=== PATIENT | male | born 1965 | race Caucasian/White ===

== ENCOUNTER 2022-12-05 09:11 | Day surgery (SDC) | payer OTHER ==
--- NOTE | 2022-11-30 12:00 | RAD REPORT ---
EXAM DESCRIPTION: RAD - Chest Pa And Lat (2 Views) - 11/30/2022 11:39 am CLINICAL HISTORY: preop for surgery, hypertension COMPARISON: Chest Pa And Lat (2 Views) dated 06/29/2019; Chest Pa And Lat (2 Views) dated 09/17/2017 FINDINGS: Lines: None. Lungs: No evidence of edema or pneumonia. Pleural: No significant pleural effusions or pneumothorax. Cardiac: The heart size is within normal limits. Mediastinum: Within normal limits. Bones: No acute fractures. Other: None IMPRESSION: No acute cardiopulmonary disease.
[2022-11-30 12:19] LABS: Absolute Lymphocytes (CBC) 1.7 K/uL (0.7-4.9); Hematocrit 46.1 % (39.6-49.0); Lymphocytes % 23.8 % (15.3-44.8); MCV 94.7 fL (80-100); MPV 7.2 fL (7.6-11.3); RBC Red Blood Cell Count 4.87 M/uL (4.33-5.43)
[2022-11-30 12:33] LABS: Potassium 4.1 mEq/L (3.5-5.1)
[2022-11-30 12:53] LABS: Protime INR 0.98
--- NOTE | 2022-12-02 14:47 | EKG ---
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
[2022-12-05] MEDS ORDERED: Ringers Lactate 1,000 ML IV ONE (09:35)
[2022-12-05] MEDS ORDERED: MIDAZOLAM HCL 2 MG/2 ML INJ ONE (10:31)
[2022-12-05] MEDS ORDERED: KETOROLAC 30 MG/ML INJ ONE (10:31)
[2022-12-05] MEDS ORDERED: propofoL 200 MG/20 ML VIAL IV ONE ×2 (10:31→11:44)
[2022-12-05] MEDS ORDERED: dexAMETHasone 10 MG/ML VIAL ONE (10:32)
[2022-12-05] MEDS ORDERED: LIDOCAINE 2% MPF 5 ML VIAL ONE (10:33)
[2022-12-05] MEDS: CEFAZOLIN SODIUM 1 GM/VIAL ONE ×2 (10:36→11:12)
[2022-12-05] MEDS ORDERED: HYDROMORPHONE HCL 1 MG/ML INJ ONE (10:36)
[2022-12-05] MEDS: BUPIVACAINE 0.25% PF 30 ML VIAL ONE ×2 (10:37→11:46)
[2022-12-05] MEDS ORDERED: ONDANSETRON 4 MG/2 ML VIAL ONE (11:28)
[2022-12-05] MEDS ORDERED: CEFAZOLIN SODIUM 1 GM/VIAL ONE (11:38)
--- NOTE | 2022-12-05 12:30 | P.BOP ---
Preoperative diagnosis: left knee medial meniscus tear, left knee osteoarthritis Postoperative diagnosis: same, left knee medial plica Primary procedure: left knee arthroscopic partial medial meniscectomy Secondary procedure: left knee arthroscopic medial femoral condyle chondroplasty Other procedure(s): left knee arthroscopic medial plica excision Chain Sales Representative: NONE,NONE Estimated blood loss: 5 cc Specimen: none Findings: see dictation Anesthesia: General Complications: None Implants: none Fluids & blood products: per anesthesia record; TT: 34 mins @ 300 mmHg Transferred to: Recovery Room Condition: Good
[2022-12-05] MEDS: HYDROMORPHONE HCL 1 MG/ML INJ ONE ×4 (12:32→12:50)
[2022-12-05] MEDS ORDERED: HYDROCODONE/APAP 7.5/325 MG TAB ONE (13:19)
[2022-12-05 13:42] VITALS: BP 136/75; TEMP 97.5; O2SAT 96
--- NOTE | 2022-12-06 05:49 | OP ---
Date of Procedure: 12/05/2022 Surgeon: Berlin Bhandari MD Preoperative Diagnoses: 1.Left knee medial meniscus tear. 2.Left knee osteoarthritis. Postoperative Diagnoses: 1.Left knee medial meniscus tear. 2.Left knee osteoarthritis. 3.Left knee medial plica. Procedures Performed: 1.Left knee arthroscopic partial medial meniscectomy. 2.Left knee arthroscopic medial femoral chondroplasty. 3.Left knee arthroscopic medial plica excision. Anesthesia: General LMA. Fluids: Per Anesthesia record. Estimated Blood Loss: 5 cc. Complications: None. Implants: None. Fluids: Per Anesthesia record. Estimated Blood Loss: 5 cc. Tourniquet Time: 34 minutes at 300 mmHg. Indication For Procedure: Joseph is a 57-year-old male who presented to my clinic with signs, symptom s, and MRI findings of left knee medial meniscus tear. I discussed with the patient at length risks and benefits associated with operative and nonoperative treatment. He expressed understanding and el ected to proceed with operative treatment. Given his underlying osteoarthritis, I also discussed wit h the patient possibility of having continued pain in the left knee and he expressed understanding. Description Of Procedure: After informed consent was obtained, the patient was identified in the pre operative holding area. The left lower extremity was marked. The patient was then brought back to [facility] operating room, transferred to the operating table in supine fashion, placed under general LMA ane sthesia. The left lower extremity was then prepped and draped in usual sterile fashion. A time-out was initiated. The correct patient and procedure were confirmed and identified. The patient did rec eive his preoperative prophylactic antibiotics. The left lower extremity was exsanguinated. The reagan rniquet was inflated to 300 mmHg. Standard anteromedial and anterolateral portals were created and d iagnostic arthroscopy was performed. 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 patella as well as trochlear groove. Arthroscope was then brought in both medial lateral gutters. There were no loose bodies within the gutters. The arthroscope was then brought into the medial co mpartment. 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 There were some loose chondral flaps, which were debrided using the arthroscopic shaver t o perform a chondroplasty. The patient was also noted to have a complex tear of the posterior horn o f the medial meniscus, and a partial medial meniscectomy was performed using meniscal biters and arth roscopic shaver to smooth meniscal borders. There was a radial type component noted. Arthroscope wa s then brought back into the intercondylar notch. The patient was then noted to have intact ACL and PCL, which were stable to probe. The arthroscope was brought in the lateral compartment with the pat ient having intact lateral meniscus, which were stable to probe as well as pristine cartilage of the lateral femoral condyle and lateral tibial plateau. The arthroscope was then brought back into the p atellofemoral joint. The patient was noted to have a medial plica, which was rubbing on the medial f emoral condyle. Medial plica excision was then performed using an arthroscopic shaver. Arthroscopic instruments were then removed without complication. Wounds were then irrigated thoroughly with norm al saline. Skin was approximated using 4-0 Monocryl. Sterile dressings were applied. Tourniquet wa s let down. The patient was awakened and transferred to PACU in stable condition. Postoperative Plan: The patient will be weightbearing as tolerated. He will follow up with Physical Therapy in 1 to 2 weeks for post meniscectomy protocol. FABRICE/MODL Voice ID: [id number] Report ID: [id number]
== END 2022-12-05 14:15 | disposition home or self-care (01) ==
LOC: OR 09:11
PROVIDERS: ADMIT Orthopaedic Surgery Sports Medicine; ATTEND Orthopaedic Surgery Sports Medicine
PROC: 0QBC4ZZ Excision of Left Lower Femur, Percutaneous Endoscopic Approach (ICD-10-PCS; 2022-12-05)
PROC: 0SBD4ZZ Excision of Left Knee Joint, Percutaneous Endoscopic Approach (ICD-10-PCS; principal; 2022-12-05 10:45)
DX: S83.232A Complex tear of medial meniscus, current injury, left knee, initial encounter (principal); M25.562 Pain in left knee; M17.12 Unilateral primary osteoarthritis, left knee
CPT/HCPCS: 29881; 93005; 85025; 80048; 36415; 85610; 85730; 71046; J2704; J2001; J2250; J1100; J1170 ×3; J2405; J7120; J0690 ×2